=== PATIENT | female | born 1960 | race Caucasian/White ===

== ENCOUNTER 2016-06-05 11:08 | Inpatient (IN) | payer MEDICAID, OTHER ==
[~2016-06-05] VITALS: Ht 157.5 cm; Wt 104.8 kg
[2016-06-05] MEDS ORDERED: KETOROLAC 60MG/2ML VIAL IM ONE (11:30)
[2016-06-05 13:19] LABS: BASOPHILS % 0.3 % (0.0-2.0); HEMATOCRIT. 39.8 % (36.0-48.0); HEMOGLOBIN. 13.3 g/dL (12.0-16.0); LYMPHOCYTES % 17.7 % (20.0-50.0); MEAN CORPUSCULAR HEMOGLOBIN 26.8 pg (28.0-32.0); MEAN CORPUSCULAR HGB CONC 33.4 g/dL (31.0-37.0); MEAN CORPUSCULAR VOLUME 80.1 fL (81.0-99.0); MEAN PLATELET VOLUME 8.6 fl (7.4-10.4); MONOCYTES % 8.1 % (2.0-8.0); NEUTROPHILS % 72.9 % (40.0-76.0); PLATELET 191 x1000/uL (130-400); RED BLOOD CELL COUNT 4.97 mill/uL (4.2-5.4); RED CELL DISTRIBUTION WIDTH 14.8 % (11.6-14.6); WHITE BLOOD COUNT 9.6 x1000/uL (4.5-11.0)
[2016-06-05 13:27] LABS: PARTIAL THROMBOPLASTIN TIME 23.9 sec (24.0-34.0); PROTHROMBIN TIME 10.3 sec
[2016-06-05 13:33] LABS: ALANINE AMINOTRANSFERASE 31 IU/L (13-61); ALBUMIN 3.5 g/dL (3.4-5.0); ANION GAP 14; CALCIUM 8.8 mg/dL (8.5-10.1); CARBON DIOXIDE 27 mEq/L (21-32); CHLORIDE 106 mEq/L (98-107); INDEX HEMOLYSI 1 (1-3); INDEX ICTERIC 1 (1-4); INDEX LIPEMIC 1 (1-3); UREA NITROGEN BLOOD 8 mg/dL (7-21); eGFR > 60 mL/min (>60)
[2016-06-05] MEDS ORDERED: MORPHINE SULFATE 4 MG/ML CPJ (NOT FOR IM USE) IV ONE (16:45)
[2016-06-05] MEDS ORDERED: SODIUM CHLORIDE 0.9% 100 ML IV ONE (16:45)
[2016-06-05] MEDS ORDERED: DOCUSATE SODIUM 100MG CAPSULE PO PRN (18:30)
[2016-06-05] MEDS ORDERED: HYDROCODONE/APAP 7.5/325MG 1 TAB TABLET PO PRN (18:30)
[2016-06-05] MEDS ORDERED: ONDANSETRON HCL 4MG/2ML VIAL IV PRN (18:30)
[2016-06-05] MEDS ORDERED: ACETAMINOPHEN 650MG SUPP PR PRN (18:30)
[2016-06-05] MEDS ORDERED: NA PHOS,M-B/NA PHOS,DI-BA ENEMA 118ML PR PRN (18:30)
[2016-06-05] MEDS ORDERED: LORAZEPAM 0.5MG TABLET PO PRN (18:30)
[2016-06-05] MEDS ORDERED: CLONIDINE 0.1MG TABLET PO PRN (18:30)
[2016-06-05] MEDS ORDERED: MAGNESIUM/ALUMINUM HYDROXIDE/SIMETHICONE 30ML UDC PO PRN (18:30)
[2016-06-05 20:00] VITALS: BP_SYST 137; BP_SYST 145; BP_DIAS 76; BP_DIAS 84
[2016-06-05] MEDS: HYDROMORPHONE HCL/PF 2MG/ML CPJ IV PRN (20:28)
[2016-06-05] MEDS: ENOXAPARIN 30MG/0.3ML SYR SUBCUT SCH (21:00)
[2016-06-05] MEDS: DIPHENHYDRAMINE 50MG/ML VIAL IV PRN (21:49)
[2016-06-05] MEDS ORDERED: IBUP-1509 PO (22:53)
[2016-06-05] MEDS: HYDROCODONE/ACETAMINOPHEN 10/325MG TABLET PO PRN (23:29)
[2016-06-06] VITALS: BP 158/82
[2016-06-06 01:23] LABS: CLARITY URINE CLOUDY (CLEAR); COLOR URINE YELLOW (YELLOW); GLUCOSE URINE NEGATIVE (NEGATIVE); KETONES URINE TRACE (NEGATIVE); LEUKOCYTE ESTERASE URINE NEGATIVE (NEGATIVE); NITRITE URINE NEGATIVE (NEGATIVE); OCCULT BLOOD URINE NEGATIVE (NEGATIVE); PH URINE 5.5 (4.5-8.0); PROTEIN URINE TRACE (NEGATIVE); SPECIFIC GRAVITY URINE 1.032 (1.005-1.030)
[2016-06-06 01:58] LABS: RBC URINE 0-2 /hpf (0-2); SQUAMOUS EPITHELIAL CELL URINE 1+ /lpf (RARE/1+); WBC URINE 0-2 /hpf (0-2)
[2016-06-06 01:59] LABS: BACTERIA URINE TRACE
[2016-06-06 02:39] LABS: *AMPHETAMINES SCREEN URINE NEGATIVE (NEGATIVE); *BARBITURATES SCREEN URINE NEGATIVE (NEGATIVE); *BENZODIAZEPINES SCREEN URINE NEGATIVE (NEGATIVE); *COCAINE SCREEN URINE NEGATIVE (NEGATIVE); CANNABINOID URINE SCREEN NEGATIVE (NEGATIVE); ECSTASY MDMA SCREEN URINE NEGATIVE (NEGATIVE); METHADONE URINE SCREEN NEGATIVE (NEGATIVE); OPIATES URINE SCREEN PRESUMTIVE POSITIVE (NEGATIVE); PHENCYCLIDINE URINE SCREEN NEGATIVE (NEGATIVE)
[2016-06-06 04:00] VITALS: BP 122/67
[2016-06-06] MEDS: HYDROMORPHONE HCL/PF 2MG/ML CPJ IV PRN ×6 (06:17→17:41)
[2016-06-06 07:14] LABS: BASOPHILS % 0.3 % (0.0-2.0); EOSINOPHILS % 3.5 % (0.0-5.0); HEMATOCRIT. 36.2 % (36.0-48.0); LYMPHOCYTES % 40.4 % (20.0-50.0); MEAN CORPUSCULAR HEMOGLOBIN 26.9 pg (28.0-32.0); MEAN CORPUSCULAR HGB CONC 33.2 g/dL (31.0-37.0); MEAN CORPUSCULAR VOLUME 80.9 fL (81.0-99.0); MEAN PLATELET VOLUME 8.9 fl (7.4-10.4); MONOCYTES % 11.1 % (2.0-8.0); NEUTROPHILS % 44.7 % (40.0-76.0); PLATELET 160 x1000/uL (130-400); RED BLOOD CELL COUNT 4.47 mill/uL (4.2-5.4); RED CELL DISTRIBUTION WIDTH 14.6 % (11.6-14.6); WHITE BLOOD COUNT 6.4 x1000/uL (4.5-11.0)
[2016-06-06 07:38] LABS: CHLORIDE 106 mEq/L (98-107); INDEX HEMOLYSI 1 (1-3); INDEX ICTERIC 1 (1-4); INDEX LIPEMIC 1 (1-3)
[2016-06-06 08:00] VITALS: BP 117/69
[2016-06-06 08:04] LABS: ALANINE AMINOTRANSFERASE 25 IU/L (13-61); ANION GAP 12; CALCIUM 8.5 mg/dL (8.5-10.1); CARBON DIOXIDE 26 mEq/L (21-32); HDL CHOLESTEROL 61 mg/dL (40-59); LDL CHOLESTEROL 99 mg/dL (5-100); TRIGLYCERIDE 95 mg/dL (0-150); UREA NITROGEN BLOOD 12 mg/dL (7-21); eGFR > 60 mL/min (>60)
[2016-06-06] MEDS: ENOXAPARIN 30MG/0.3ML SYR SUBCUT SCH ×2 (09:00→22:05)
[2016-06-06] MEDS ORDERED: BACITRACIN ZINC 15GM TUBE TOP ONE (09:59)
[2016-06-06] MEDS ORDERED: VANCOMYCIN HCL 500 MG/VIAL ONE (09:59)
[2016-06-06] MEDS ORDERED: SODIUM CHLORIDE 0.9% 1,000 ML IV SCH (10:11)
[2016-06-06] MEDS ORDERED: MEPERIDINE HCL/PF 25MG/ML CPJ IV PRN (10:15)
[2016-06-06] MEDS ORDERED: FENTANYL CITRATE/PF 50MCG/ML 2ML VIAL IV PRN (10:15)
[2016-06-06] MEDS ORDERED: ONDANSETRON HCL 4MG/2ML VIAL IV PRN (10:15)
[2016-06-06] MEDS ORDERED: FENTANYL CITRATE/PF 50MCG/ML 2ML VIAL ONE (10:37)
[2016-06-06] MEDS ORDERED: METOCLOPRAMIDE HCL 10MG/2ML VIAL ONE (10:52)
[2016-06-06] MEDS ORDERED: PROPOFOL 200MG/20ML VIAL IV ONE (10:53)
[2016-06-06] MEDS ORDERED: CEFAZOLIN SODIUM 1000MG/VIAL ONE (10:53)
[2016-06-06] MEDS ORDERED: LIDOCAINE HCL 1% 20ML VIAL (Pyxis) INJ ONE (10:53)
[2016-06-06] MEDS ORDERED: KETOROLAC 60MG/2ML VIAL IM ONE (10:55)
[2016-06-06] MEDS ORDERED: POTASSIUM CHLORIDE INJ 40 MEQ in DEXT 5% WATER 500 ML IV NR (11:00)
[2016-06-06] MEDS ORDERED: EPHEDRINE SULFATE 50MG/ML VIAL ONE (11:06)
[2016-06-06] MEDS ORDERED: ROCURONIUM BROMIDE 10MG/ML VIAL 5ML IV ONE (11:18)
[2016-06-06] MEDS ORDERED: ONDANSETRON HCL 4MG/2ML VIAL ONE (11:19)
[2016-06-06 16:00] VITALS: BP 116/59
[2016-06-06] MEDS ORDERED: ACETAMINOPHEN 325MG TABLET PO PRN (18:30)
[2016-06-06] MEDS ORDERED: ACETAMINOPHEN 650MG/20.3ML UDC PO PRN (18:30)
[2016-06-06] MEDS: CEFAZOLIN 1000MG PREMIX 50 ML IV SCH (19:24)
[2016-06-06] MEDS: HYDROCODONE/ACETAMINOPHEN 10/325MG TABLET PO PRN ×2 (19:25→23:40)
[2016-06-06 20:00] VITALS: BP 108/52
[2016-06-07] VITALS: BP 99/49
[2016-06-07] MEDS: CEFAZOLIN 1000MG PREMIX 50 ML IV SCH (03:39)
[2016-06-07] MEDS: HYDROCODONE/ACETAMINOPHEN 10/325MG TABLET PO PRN ×3 (03:40→16:07)
[2016-06-07 04:00] VITALS: BP 115/62
[2016-06-07 07:21] LABS: BASOPHILS % 0.1 % (0.0-2.0); EOSINOPHILS % 1.3 % (0.0-5.0); HEMATOCRIT. 32.1 % (36.0-48.0); HEMOGLOBIN. 10.6 g/dL (12.0-16.0); LYMPHOCYTES % 21.7 % (20.0-50.0); MEAN CORPUSCULAR HGB CONC 32.9 g/dL (31.0-37.0); MEAN PLATELET VOLUME 9.1 fl (7.4-10.4); MONOCYTES % 6.6 % (2.0-8.0); NEUTROPHILS % 70.3 % (40.0-76.0); PLATELET 145 x1000/uL (130-400); RED BLOOD CELL COUNT 3.91 mill/uL (4.2-5.4); RED CELL DISTRIBUTION WIDTH 14.8 % (11.6-14.6); WHITE BLOOD COUNT 11.6 x1000/uL (4.5-11.0)
[2016-06-07 07:56] LABS: ANION GAP 13; CALCIUM 7.6 mg/dL (8.5-10.1); CARBON DIOXIDE 27 mEq/L (21-32); CHLORIDE 104 mEq/L (98-107); INDEX HEMOLYSI 1 (1-3); INDEX ICTERIC 1 (1-4); INDEX LIPEMIC 1 (1-3); UREA NITROGEN BLOOD 9 mg/dL (7-21); eGFR > 60 mL/min (>60)
[2016-06-07 08:00] VITALS: BP 119/58
[2016-06-07] MEDS: ENOXAPARIN 30MG/0.3ML SYR SUBCUT SCH ×2 (09:36→21:50)
[2016-06-07 12:00] VITALS: BP 109/61
[2016-06-07 16:00] VITALS: BP 122/69
[2016-06-07 20:00] VITALS: BP 129/70
[2016-06-07] MEDS: DIPHENHYDRAMINE 50MG/ML VIAL IV PRN (21:50)
[2016-06-08] VITALS (7 sets, daily range): BP systolic 106–126; BP diastolic 61–72
[2016-06-08] MEDS: HYDROMORPHONE HCL/PF 2MG/ML CPJ IV PRN ×2 (03:54→10:57)
[2016-06-08] MEDS: DIPHENHYDRAMINE 50MG/ML VIAL IV PRN (05:45)
[2016-06-08] MEDS: ENOXAPARIN 30MG/0.3ML SYR SUBCUT SCH ×2 (09:41→20:15)
[2016-06-08] MEDS: HYDROCODONE/ACETAMINOPHEN 10/325MG TABLET PO PRN (16:51)
== END 2016-06-08 21:45 | disposition home or self-care (01) | DRG 313 ==
LOC: ER 11:17 → 6EST 13:20
PROVIDERS: ADMIT Family Medicine; ATTEND Family Medicine
PROC: 0QSJ04Z Reposition Right Fibula with Internal Fixation Device, Open Approach (ICD-10-PCS; principal; 2016-06-06 09:00)
DX: S82.851A Displaced trimalleolar fracture of right lower leg, initial encounter for closed fracture (principal); E87.8 Other disorders of electrolyte and fluid balance, not elsewhere classified; Z68.41 Body mass index [BMI] 40.0-44.9, adult; E66.01 Morbid (severe) obesity due to excess calories; D62 Acute posthemorrhagic anemia; R73.9 Hyperglycemia, unspecified; W10.9XXA Fall (on) (from) unspecified stairs and steps, initial encounter; Y93.89 Activity, other specified; Y99.8 Other external cause status; Y92.008 Other place in unspecified non-institutional (private) residence as the place of occurrence of the external cause; Z98.891 History of uterine scar from previous surgery; Z98.890 Other specified postprocedural states
CPT/HCPCS: 36415; 71010; 73560; 73590; 73600; 73610; 73630; 80048; 80053; 80061; 80305; 81001; 83036; 84484; 85025; 85610; 85730; 93005; 96372; 97116; 97163; 99285; J0171; J0690; J1170; J1200; J1650; J1885; J2270; J2405; J2704; J2765; J3010; J3370; J3480; J3490; J7030; J7040; J7050; J7060; Q4051